=== PATIENT | female | born 1930 | race Caucasian/White ===

== ENCOUNTER → 2017-03-28 | Outpatient (CLI) | payer OTHER ==
[2015-11-20 01:55] VITALS: BP 113/61
[~2017-03-28] MED LIST: NS 100 ML IV 100 ML IV ONE
[2017-03-28 10:34] LABS: CREATININE 0.85 mg/dL (0.55-1.02)
--- NOTE | 2017-03-28 13:47 | CT ---
HISTORY: Right lower quadrant pain Study: CT abdomen pelvis without contrast Comparison: None Technique: Axial non contrast images with coronal and sagittal reformats. Dose reduction procedures w ere used with MA/kv adjusted for body size. Intravenous contrast could not be secured due to a contra st sensitivity history given by the patient. Findings: The lung bases are clear. The heart is enlarged. There is small hiatal hernia present. The liver, spl een, adrenal glands, and pancreas are within normal limits to the limitations of an unenhanced examin ation. The patient is status post cholecystectomy. The kidneys are unobstructed and without stones. N o ureteral calculi are identified. The appendix is surgically absent by history no significant intrap eritoneal all lymphadenopathy is identified. Calcific atherosclerotic changes present aorta. There ar e no findings suggestive of diverticulitis or colitis. Examination of the pelvis demonstrated no evid ence for pelvic masses, pelvic fluid, or pelvic lymphadenopathy. No bladder abnormality is identified . Small fat containing inguinal hernias are present bilaterally. No lytic or blastic skeletal lesions are identified. Degenerative joint disease is present in the right hip. IMPRESSION: No evidence for acute intra-abdominal or intrapelvic abnormality to the limitations of an unenhanced examination. Bilateral small fat containing inguinal hernias Small hiatal hernia Reported By:
--- NOTE | 2017-03-28 13:47 | CT ---
HISTORY: Right hip pain Study: CT right hip without contrast Comparison: None Technique: Axial non contrast images with coronal and sagittal reformats. Dose reduction procedures w ere used with MA/kv adjusted for body size. Findings: The bones are osteopenic. The visualized portions of the sacrum and right SI joint are normal. The ri ght pelvic bones are intact. There is degenerative joint disease in the right hip joint in the form o f joint space narrowing subchondral sclerosis and subchondral cyst formation. There is a question of some early fragmentation of the femoral head. Early avascular necrosis cannot be excluded. MRI would be of further diagnostic value. No joint erosions are identified. No fracture, lytic, or blastic lesi on is identified. IMPRESSION: Degenerative joint disease right hip joint Slight flattening and fragmentation of the humeral head. Early avascular necrosis cannot be excluded. MRI is recommended for further evaluation if clinically indicated Reported By:
== END ==
LOC: RAD 08:49
PROVIDERS: ATTEND Internal Medicine
DX: M25.551 Pain in right hip (principal); R10.31 Right lower quadrant pain; K44.9 Diaphragmatic hernia without obstruction or gangrene; K40.20 Bilateral inguinal hernia, without obstruction or gangrene, not specified as recurrent; M16.11 Unilateral primary osteoarthritis, right hip
CPT/HCPCS: 36415; 73700; 74176; 82565; 84520

== ENCOUNTER 2017-04-29 14:22 | Emergency (ER) | payer OTHER ==
[2017-04-29 14:28] VITALS: BP 156/64; BMI 23.0
--- NOTE | 2017-04-29 14:41 | DR.GENAD ---
HPI - PCP Primary Care Physician: THELMA - Complaint/Symptoms Chief Complaint Doctors Comments: History as stated. Patient admits to left shoulder pain. Pain is 10, aggravated by motion of shoulder with numbness of the extremity Chief Complaint:: "MY LEFT SHOULDER IS HURTING AND MY FINGERS FILL NUMB." Self Treatment fo Chief Complaint: MOTRIN - Source History Provided: Patient - Mode of Arrival Mode of Arrival: Ambulatory - Timing Onset of Chief Complaint: 04/29/17 PMH - PMH Past Medical History: Yes Past Medical History: Dyslipidemia, Hypertension, Hypothyroidism Past Surgical History: Yes Surgical History: Appendectomy, Cholecystectomy - Family History History of Family Medical Conditions: Yes Family Medical History: Hypertension - Social History Does patient currently use any type of tobacco product: No Have you used tobacco products in the last 12 months: No Type of Tobacco Use: None Does any household member use tobacco: No Alcohol Use: None Do you use any recreational Drugs:: No Lives With: Alone Lives Where: Home - infectious screening In the last 2 months have you had wt loss of >10#?: NO Have you had fever, night sweats or hemotysis?: No Have you traveled outside the country in the last 6 months?: No Isolation: Standard ROS - Review of Systems Eyes: No Symptoms Reported ENTM: No Symptoms Reported Respiratoy: No Symptoms Reported Cardiovascular: No Symptoms Reported Gastrointestinal/Abdominal: No Symptoms Reported Genitourinary: No Symptoms Reported Neurological: No Symptoms Reported Musculoskeletal: Shoulder (pain) Integumentary: No Symptoms Reported Hematologic/Lymphatic: No Symptoms Reported Endocrine: No Symptoms Reported Psychiatric: No Symptoms Reported All Other Systems: Reviewed and Negative PE - Vital Signs Vitals: Temperature 98.5 F Pulse Rate 70 Respiratory Rate 16 Blood Pressure 156/64 O2 Sat by Pulse Oximetry 96 - General Limitations: No Limitations General Appearance: Alert, In No Apparent Distress - Head Head Exam: Normal Inspection, Atraumatic - Eyes Eye exam: Normal Appearance, PERRL, EOMI - ENT ENT Exam: Normal Exam External Ear Exam: Normal External Inspection TM/Canal Exam: Bilateral Normal Nose Exam: Normal Nose Exam Mouth Exam: Normal Inspection Throat Exam: Normal Inspection - Neck Neck Exam: Normal Inspection - Chest Chest Inspection: Normal Inspection - Respiratory Respiratory Exam: Normal Lung Sounds Bilat Respiratory Exam: Bilateral Clear to Auscultation - Cardiovascular Cardiovascular Exam: Regular Rate, Normal Rhythm - Abdominal Exam Abdominal Exam: Normal Inspection, Normal Bowel Sounds Abdominal Tenderness: negative: RUQ, RLQ, LUQ, LLQ, Epigastrium, Suprapubic, Diffuse, Mild, Moderate, Severe, Other - Extremities Extremities Exam: Normal Inspection, Full ROM - Back Back Exam: Normal Inspection - Neurologic Neurological Exam: Alert, Oriented X3, CN II-XII Intact - Psychiatric Psychiatric Exam: Normal Affect - Skin Skin Exam: Warm, Dry, Intact ROR - XRAY XRAY Interpreted by: Radiologist (Cervical Spine: Anatomic alignment without acute fracture or listhesis. Muyltilevel degenerative changes of the cervical spine. which is worse at C4 through C6 with moderate to severe disc space narrowing, endplate sclerosis and anterior disc osteophyte complexes. Spinal canal stenosis. Multilevel uncovertebral hypertrophy. Calcification of the nuchal ligament. The dens is intact. The prevertebral soft tissues and lug apices appear normal. Impression: chronic findings as above.) - Diagnosis Discharge Problem: DJD (degenerative joint disease) of cervical spine Qualifiers: Spinal osteoarthritis complication: with radiculopathy Qualified Code(s): M47.22 - Other spondylosis with radiculopathy, cervical region - Discharge Plan Condition: Stable - Follow ups/Referrals Follow ups/Referrals: Mason Landeros [Primary Care Provider] - 3 days - Instructions
[2017-04-29] MEDS ORDERED: MORPHINE SULFATE INJ 4 MG IM ONE (14:50)
[2017-04-29] MEDS ORDERED: MORPHINE SULFATE INJ 4 MG ONE (14:56)
--- NOTE | 2017-04-29 16:21 | RAD ---
HISTORY: Left shoulder pain. Study: Three views of the cervical spine. Comparison: None. Findings: Anatomic alignment without acute fracture or listhesis. Multilevel degenerative changes of the cervic al spine, which is worse at C4 through C6 with moderate to severe disc space narrowing, endplate scle rosis, and anterior disc osteophyte complexes. Spinal canal stenosis. Multilevel uncovertebral hypert rophy. Calcification of the nuchal ligament. The dens is intact. The prevertebral soft tissues and sher ng apices appear normal. IMPRESSION: Chronic findings as above. Reported By:
== END 2017-04-29 17:18 | disposition home or self-care (01) ==
LOC: ER 14:31
DX: M47.22 Other spondylosis with radiculopathy, cervical region (principal)
CPT/HCPCS: 72040; 96372; 99282; J2270

== ENCOUNTER → 2017-10-14 | Outpatient (CLI) | payer OTHER ==
--- NOTE | 2017-10-16 09:48 | MG ---
HISTORY: SCREENING Comparison: September 27, 2014 and September 24, 2016 FINDINGS: Bilateral CC and MLO projections of the right and left breast were obtained. Scattered fibroglandula r tissue is seen to be present without significant interval change. No suspicious architectural dist ortion, mass or clustered microcalcifications can be observed to suggest malignancy. No skin thicken ing or nipple retraction is appreciated. No pathological lymphadenopathy can be identified. Benign- appearing calcifications are noted within the right and left breast. IMPRESSION: NO RADIOGRAPHIC EVIDENCE OF MALIGNANCY. ACR CATEGORY 2 - benign findings. FOLLOW-UP EXAM 1 YEAR. Diagnostic CAD was utilized and reviewed. * 0 (ZERO) - ASSESSMENT INCOMPLETE; ADDITIONAL IMAGING IS NEEDED. * 1/1 (ONE) - NEGATIVE. * 2/II (TWO) - BENIGN FINDINGS. * 3/III (THREE) - PROBABLY BENIGN FINDING; SHORT INTERVAL FOLLOW-UP SUGGESTED. * 4/IV (FOUR) - SUSPICIOUS ABNORMALITY; BIOPSY SHOULD BE CONSIDERED. * 5/V - HIGHLY SUSPICIOUS OF MALIGNANCY; BIOPSY SHOULD BE PERFORMED. A NEGATIVE X-RAY REPORT SHOULD NOT DELAY BIOPSY IF A DOMINANT OR CLINICALLY SUSPICIOUS MASS IS PRESENT; 4 TO 8 PERCENT OF CANCERS ARE NOT IDENTIFIED BY X-RAY. A NEGA TIVE REPORT MAY REINFORCE THE CLINICAL IMPRESSION. ADENOSIS AND DENSE BREASTS MAY OBSCURE AN UNDERLY ING NEOPLASM. Reported By:
== END ==
LOC: RAD 08:58
PROVIDERS: ATTEND Internal Medicine
DX: Z12.31 Encounter for screening mammogram for malignant neoplasm of breast (principal)
CPT/HCPCS: 77067

== ENCOUNTER → 2017-12-20 | Outpatient (CLI) | payer OTHER ==
[2017-12-20 10:05] LABS: CREATININE 0.85 mg/dL (0.55-1.02)
--- NOTE | 2017-12-20 12:09 | CT ---
CT OF THE ABDOMEN AND PELVIS WITH CONTRAST HISTORY: Lower abdominal pain Comparison: 03/28/2017 Technique: Multiple axial images of the abdomen and pelvis were obtained from the lung bases to the pubic symphy sis follow the administration of IV contrast as well as oral contrast. Dose reduction techniques inc luding Automated Exposure Control (AEC) and adjustment of mA and kV were utlized. Findings: Cardiomegaly. There is no pericardial effusion. Fibrosis of the lung bases. Liver and spleen are normal in size, enhancement characteristics and contour. No focal lesions. The p ortal vein is patent. No ductal dilitation. Gallbladder absent. Pancreatic atrophy. Adrenal glands ar e normal. Kidneys enhance symmetrically without hydronephrosis or nephrolithiasis. No bowel obstruction or inflammation. Diverticulosis without focal inflammation. No abnormal appearin g mesenteric or retroperitoneal lymph nodes. No free fluid or fluid collections. The bladder is normal in appearance. Uterus not seen. No free fluid or abnormal pelvic lymph nodes. No aggressive osseous lesions. IMPRESSION: 1. No source of patient's lower abdominal pain is identified on this examination. 2. Diverticulosis without diverticulitis. 3. Cardiomegaly and fibrosis of the lungs. Reported By:
== END | disposition home or self-care (01) | DRG 816 ==
LOC: RAD 08:40
PROVIDERS: ATTEND Internal Medicine
DX: R59.0 Localized enlarged lymph nodes (principal); R10.32 Left lower quadrant pain; R10.31 Right lower quadrant pain; K57.90 Diverticulosis of intestine, part unspecified, without perforation or abscess without bleeding; I51.7 Cardiomegaly; J84.10 Pulmonary fibrosis, unspecified
CPT/HCPCS: 36415; 74177; 82565; 84520; A4222